=== PATIENT | female | born 1980 | race Caucasian/White ===

== ENCOUNTER → 2022-01-12 12:11 | Outpatient (CLI) | payer OTHER, SELFPAY ==
--- NOTE | ~2022-01-12 | XR_ITS ---
XR foot LT min 3V DATE: 01/12/2022 12:21 INDICATION: Dorsal left foot pain TECHNIQUE: 4 views COMPARISON: 05/10/2010 left foot FINDINGS: Mild plantar calcaneal enthesopathy. No fracture or dislocation, periosteal reaction or bon e destruction of the left foot. No erosive change. Mild hallux valgus IMPRESSION: Mild hallux valgus Mild plantar calcaneal enthesopathy Reviewed, dictated and finalized at location B. S COUNSELOR
== END ==
PROVIDERS: PCP Emergency Medicine; Visit Provider Emergency Medicine
DX: M79.672 Pain in left foot (principal); M20.12 Hallux valgus (acquired), left foot; M77.32 Calcaneal spur, left foot
CPT/HCPCS: 73630

== ENCOUNTER 2022-03-29 08:01 | Emergency (ER) | payer OTHER, SELFPAY ==
[2022-03-29 08:14] VITALS: BP 144/98; PULSE 94; RESP 16; TEMP 35.9; O2SAT 99
--- NOTE | 2022-03-29 08:21 | ED.URI ---
HPI - URI/Sore Throat General Chief Complaint: Upper Respiratory Infection Stated Complaint: sinus pain,headache Time Seen by Provider: 03/29/22 08:22 Source: patient and RN notes reviewed Mode of arrival: ambulatory Limitations: no limitations History of Present Illness HPI Narrative: 41-year-old female presented for complaint of facial pressure, sinus headache, nasal drainage causing nausea for 2 days. She also endorses bilateral ear pressure is present for 7 days. She has taken [id number]-[id number] cough and cold medication without relief, and has been using a Neti pot without drainage. 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 Denies sob, wheezing, v/d/f/c. MD elicited complaint: cough Related Data Home Medications Medication Instructions Recorded Confirmed drospirenone 3 mg-ethinyl 1 tablet PO DAILY 03/29/22 03/29/22 estradiol 0.03 mg tablet (Meredith) escitalopram oxalate 10 mg tablet 10 mg PO DAILY 03/29/22 03/29/22 Allergies Allergy/AdvReac Type Severity Reaction Status Date / Time codeine Allergy Hives Verified 03/29/22 08:22 Review of Systems Review of Systems: per HPI [facility] Family History Family History Other Family history of migraine headaches Social History Social History Smoking status: Never smoker Alcohol intake: current Substance use: unknown Lack of Transportation: No Lack of Food: Never True Current Housing: I Have Housing Concerned About Future Housing: No Difficulty Paying Gas/Electric Bills: No Difficulty Paying for Meds: No Currently Unemployed: No Education: Bachelor's Degree Difficulty w/ Childcare or Family Care: No Exam Narrative: GENERAL: well-appearing, nontoxic EYES: PERRLA, conjunctivae clear ENT: Mucous membranes moist. TMs pearly arreola with dull light reflex bilaterally; no tragal tenderness. Oropharynx normal, no drooling, no hoarseness, no trismus, uvula midline. NECK: Supple. No lymphadenopathy CHEST: Clear to auscultation, breath sounds equal. HEART: Regular rate and rhythm. No murmur heard. SKIN: Warm, dry, no rash. NEURO: Alert and oriented x3. PSYCH: Normal mood and affect Course Course Emergency Course: Patient is aware of diagnosis, understands and agrees to treatment plan. Anticipatory guidance given. Patient agrees to follow-up as directed and is aware of reasons to seek care at the emergency department. Portions of this record may have been created with voice recognition software Level of Care: Express Care Visit Vital Signs Vital signs: Vital Signs Temperature 96.7 F L 03/29/22 08:14 Pulse Rate 94 03/29/22 08:14 Respiratory Rate 16 03/29/22 08:14 Blood Pressure 144/98 H 03/29/22 08:14 Pulse Oximetry 99 03/29/22 08:14 Oxygen Delivery Room Air 03/29/22 08:14 Temperature 96.7 F L 03/29/22 08:14 Pulse Rate 94 03/29/22 08:14 Respiratory Rate 16 03/29/22 08:14 Blood Pressure 144/98 H 03/29/22 08:14 Pulse Oximetry 99 03/29/22 08:14 Oxygen Delivery Room Air 03/29/22 08:14 reviewed MDM - URI/Sore Throat MDM Narrative Medical decision making narrative: Advised supportive measures and signs/symptoms to go to the ER. Pt is appropriate for outpt treatment and f/u. Differential Diagnosis Differential diagnosis: Likely upper respiratory infection, sinusitis and viral infection Discharge Plan Discharge Clinical Impression: Upper respiratory infection Patient Disposition: Home, Self-Care Condition: Stable Instructions: Antibiotic Form, Rhinosinusitis (ED) Additional Instructions: Recommend Flonase spray and Zyrtec (or Claritin/Leandra) over the counter Cough syrup may cause drowsiness; avoid driving or take it at night time. Tylenol 1000mg every 8 hours as needed for pain Symptomatic treatment includes: rest, fluids, and increase humidity of the
== END 2022-03-29 08:35 | disposition home or self-care (01) ==
PROVIDERS: Emergency Provider Nurse Practitioner Family
DX: J06.9 Acute upper respiratory infection, unspecified (principal)
CPT/HCPCS: 99213; G0463

== ENCOUNTER → 2023-01-25 11:21 | Outpatient (CLI) | payer OTHER, SELFPAY ==
--- NOTE | ~2023-01-25 | MM_ITS ---
EXAMINATION: MM screening jaren BI w rosetta HISTORY: Screening mammogram. Baseline examination. TECHNIQUE: Craniocaudal and mediolateral oblique 3-D tomosynthesis images were obtained and synthetic 2-D images were generated. CAD analysis was submitted and interpreted. COMPARISON: No prior mammogram is available for comparison at this institution. BREAST PARENCHYMAL COMPOSITION: There are scattered areas of fibroglandular density. FINDINGS: Occasional bilateral benign calcifications. There is no evidence of suspicious mass, calcif ication, or architectural distortion to suggest malignancy in either breast. There has been no suspic ious interval change. IMPRESSION: 1. No mammographic evidence of malignancy. 2. Recommend routine screening mammography in one year. BI-RADS Category 1: Negative Reviewed, dictated and finalized at location A. [employer]
== END ==
PROVIDERS: PCP Nurse Practitioner; Visit Provider Nurse Practitioner
DX: Z12.31 Encounter for screening mammogram for malignant neoplasm of breast (principal)
CPT/HCPCS: 77063; 77067

== ENCOUNTER → 2023-01-30 14:59 | Outpatient (CLI) | payer OTHER, SELFPAY ==
--- NOTE | ~2023-01-30 | XR_ITS ---
XR shoulder RT min 2V 01/30/2023 15:19 INDICATION: Right shoulder pain PROCEDURE: 4 views right shoulder COMPARISON: No prior studies for comparison. FINDINGS: Fracture, dislocation or subluxation is not identified. The soft tissues appear within norm al limits. No foreign bodies are identified. IMPRESSION: 1: NO ACUTE BONE OR JOINT ABNORMALITY IDENTIFIED. Reviewed, dictated and finalized at location B. OR [employer]
--- NOTE | ~2023-01-30 | XR_ITS ---
[id number] 01/30/2023 15:19 Indication: Radiculopathy Procedure: 3 view cervical spine Comparison: No prior studies for comparison. Findings: Straightening of cervical lordosis. There is subtle anterolisthesis at C4-5. No prevertebra l soft tissue abnormality. Lung apices are normal. Odontoid process is normal. No fracture is identif ied. Impression: 1: Subtle anterolisthesis at C4-5 mild likely degenerative. No fracture identified. Reviewed, dictated and finalized at location B. EMIC SUPPORT DIRECTOR Impression: 1: Subtle anterolisthesis at C4-5 mild likely degenerative. No fracture identif ied.
== END ==
PROVIDERS: PCP Emergency Medicine; Visit Provider Emergency Medicine
DX: M54.12 Radiculopathy, cervical region (principal); M79.601 Pain in right arm
CPT/HCPCS: 72040; 73030

== ENCOUNTER 2023-02-07 14:56 | Emergency (ER) | payer OTHER, SELFPAY ==
[2023-02-07 15:16] VITALS: BP 130/64; PULSE 112; RESP 18; TEMP 36.3; O2SAT 95
--- NOTE | 2023-02-07 15:22 | ED.GENADULT ---
HPI - General Adult General Chief complaint: Upper Respiratory Infection Stated complaint: sorethroat Time Seen by Provider: 02/07/23 15:22 Source: patient, RN notes reviewed and old records reviewed Mode of arrival: ambulatory Limitations: no limitations History of Present Illness HPI narrative: 42-year-old female presents to [facility] with complaint sore throat, myalgia, fatigue, Headache,sinus congestion that started yesterday. Patient taking kohp-kfs-zyllowl medications with no relief. Patient denies cough, chest pain, wheezing, weakness, dizziness, vomiting. MD complaint: sore throat Onset (ago): day(s) (1) Related Data Home Medications Medication Instructions Recorded Confirmed drospirenone 3 mg-ethinyl 1 tablet PO DAILY 03/29/22 02/07/23 estradiol 0.03 mg tablet (Meredith) escitalopram oxalate 10 mg tablet 10 mg PO DAILY 03/29/22 02/07/23 Allergies Allergy/AdvReac Type Severity Reaction Status Date / Time codeine Allergy Hives Verified 01/30/23 14:13 Review of Systems Constitutional: Constitutional: Reports as per HPI, Reports body ache(s), Denies chills, Reports fatigue, Denies fever(s) and Reports headache(s) Eyes: Eyes: Reports no additional eye complaints and Denies blurry vision ENT: Denies vertigo, Denies dizziness, Denies ear discharge, Denies otalgia, Denies facial pain, Denies headache(s), Denies nasal congestion, Denies nasal discharge, Denies sinus pain, Denies sinus pressure and Reports sore throat Cardiovascular: Cardiovascular: Denies chest pain, Denies chest pain at rest, Denies rapid heart rate and Denies dyspnea Respiratory: Respiratory: Denies chest congestion, Denies cough, Denies pain on inspiration, Denies pain with cough and Denies dyspnea Gastrointestinal: Gastrointestinal: Denies abdominal pain, Denies diarrhea, Denies nausea and Denies vomiting Integumentary/Breasts: Skin/Breast: Denies rash Neurologic: Reports system reviewed and no additional complaints, except as documented, Denies vertigo, Denies dizziness and Denies headache(s) Endocrine: Endocrine: Denies fatigue PMF Family History Family History Other Family history of migraine headaches Social History Social History Social History: Soda- occasionally Smoking status: Never smoker Alcohol intake: never Substance use: never Substance use type: does not use Lack of Transportation: No Lack of Food: Never True Current Housing: I Have Housing Concerned About Future Housing: No Difficulty Paying Gas/Electric Bills: No Difficulty Paying for Meds: No Currently Unemployed: No Education: Bachelor's Degree Difficulty w/ Childcare or Family Care: No Comments At the time of my signature, I reviewed and agree with the nursing past medical, surgical, social, and family history. There is no relevant family history pertinent to the patient complaint. Exam Const: General: cooperative, healthy appearing, no acute distress and well nourished Nutritional Appearance: well nourished Orientation/consciousness: patient oriented x3 Limitations: no limitations HENMT: Head: normal to inspection and normocephalic Ears: external ears normal, TM's normal bilaterally, mastoids normal and Abnormal EAC present Face/Nose/Sinus: normal facial exam Face and sinus: normal facial exam Mouth: Yes Normal oral and palatal mucosa present, Yes oropharynx normal and Yes moist mucous membranes Throat: tonsils normal, uvula midline, posterior oropharynx abnormal erythema and no uvular edema Eyes: General: appearance normal, both eyes and all related structures Sclera: sclerae normal Pupils: Equal, round and reactive pupils present Resp: Effort & Inspection: normal respiratory effort, able to speak in complete sentences, no audible wheezes, no cough, no respiratory distress and no retractions Auscultation:
== END 2023-02-07 15:48 | disposition home or self-care (01) ==
PROVIDERS: Emergency Provider Registered Nurse; PCP Emergency Medicine
DX: J02.0 Streptococcal pharyngitis (principal); Z79.899 Other long term (current) drug therapy; Z20.822 Contact with and (suspected) exposure to COVID-19
CPT/HCPCS: 87426; 87804; 87880; 99213; C9803; G0463

== ENCOUNTER 2023-05-09 08:04 | Outpatient (CLI) | payer OTHER, SELFPAY ==
--- NOTE | ~2023-05-09 | CT_ITS ---
EXAMINATION: CT sinus wo con DATE: 05/09/2023 08:30 INDICATION: Nasal valve collapse. Headache. Facial pain and pressure. Congestion and drainage. TECHNIQUE: Computed tomography (CT) of the paranasal sinuses was performed without intravenous contra st. Iterative reconstruction technique was employed. The dose-length product was 279.12 mGy-cm. COMPARISON: CT sinuses 01/01/2019 FINDINGS: There is mild mucosal thickening in the frontal sinuses and right ethmoid sinuses. The sphe noid sinuses are clear. There is mild mucosal thickening in the maxillary sinuses. There is rightward deviation of anterior nasal septum. There is leftward deviation of superior posterior nasal septum. There is a Fang cell on the left. The ostiomeatal units are patent. IMPRESSION: 1. Mild mucosal thickening in the paranasal sinuses. 2. Rightward deviation of the anterior nasal septum and leftward deviation of the superior posterior nasal septum. Reviewed, dictated and finalized at location A. IMPRESSION: 1. Mild mucosal thickening in the paranasal sinuses. 2. Rightward deviation of the anterior nasal septum and leftward deviation of t he superior posterior nasal septum.
== END 2023-05-09 08:05 ==
PROVIDERS: PCP Otolaryngology; Visit Provider Otolaryngology
DX: J34.89 Other specified disorders of nose and nasal sinuses (principal); J34.2 Deviated nasal septum
CPT/HCPCS: 70486

== ENCOUNTER 2023-09-22 14:17 | Emergency (ER) | payer OTHER, SELFPAY ==
[2023-09-22 14:30] VITALS: BP 110/65; PULSE 107; RESP 20; TEMP 36.3; O2SAT 98
--- NOTE | 2023-09-22 14:31 | ED.URI ---
HPI - URI/Sore Throat General Chief Complaint: Upper Respiratory Infection Stated Complaint: flu like symptoms Time Seen by Provider: 09/22/23 14:31 Source: patient Mode of arrival: ambulatory Limitations: no limitations History of Present Illness HPI Narrative: 43 yo F presents with c/o fatigue, chills, sweats, bodyaches, headache for 5 days. Had fever for 2 days, has resolved. Taking OTC pain meds. Reports cough intermittent. Denies sore throat, congestion. Daughter had strep approx. 2 wks. ago. +nausea. Denies vomiting. All systems reviewed and negative except as noted above. Related Data Home Medications Medication Instructions Recorded Confirmed drospirenone 3 mg-ethinyl 1 tablet PO DAILY 03/29/22 09/22/23 estradiol 0.03 mg tablet (Meredith) escitalopram oxalate 10 mg tablet 10 mg PO DAILY 03/29/22 09/22/23 omeprazole 40 mg capsule,delayed 40 mg PO DAILY 09/22/23 09/22/23 release Allergies Allergy/AdvReac Type Severity Reaction Status Date / Time codeine AdvReac Mild Hives Verified 09/22/23 14:19 Review of Systems Review of Systems: CONSTITUTIONAL: reports fever, chills, or sweats. EYES: Denies visual changes, redness, or discharge. ENT: Reports rhinorrhea, congestion. Denies sore throat, or otalgia. CARDIOVASCULAR: Denies chest pain, palpitations, or edema. RESPIRATORY: Denies cough or dyspnea. GASTROINTESTINAL: Denies abdominal pain, nausea, vomiting, or diarrhea. GENITOURINARY: Denies dysuria or hematuria. SKIN: Denies rash or itching. MUSCULOSKELETAL: Denies back pain, joint pain. Reports myalgia. NEUROLOGIC: reports headache. Denies numbness, or weakness. PSYCHIATRIC: Denies anxiety or depression. All other systems reviewed are negative, except as documented in HPI. [facility] Family History Family History Other Family history of migraine headaches Social History Social History Social History: Soda- occasionally Smoking status: Never smoker Alcohol intake: never Substance use: never Substance use type: does not use Lack of Transportation: No Lack of Food: Never True Current Housing: I Have Housing Concerned About Future Housing: No Difficulty Paying Gas/Electric Bills: No Difficulty Paying for Meds: No Currently Unemployed: No Education: Bachelor's Degree Difficulty w/ Childcare or Family Care: No Comments At time of signature, agree with nursing past medical, surgical, social and family history. There is no relevant family history pertinent to the presenting complaint. Exam Narrative: GENERAL: This is a well-nourished, well-developed patient, patient ill-appearing but in no distress HEAD: normocephalic, atraumatic. EYES: PERRL. Sclera clear/white. Vision is grossly intact. EARS: External ears normal, auditory canals clear and without drainage, TMs normal without perforation. Hearing grossly intact. NOSE: External nose normal with clear nasal drainage THROAT: Mucous membranes moist, posterior pharynx clear. NECK: Neck supple, non-tender without lymphadenopathy, masses or thyromegaly. CARDIOVASCULAR: Regular rate and rhythm without murmurs, gallops, or rubs. RESPIRATORY: Clear to auscultation. Breath sounds equal bilaterally. No wheezes, rales, or rhonchi. SKIN: warm, Dry, intact with no suspicious lesions or rash, good texture and turgor. NEURO: awake, alert, and oriented to person, place and time. There were no obvious focal neurologic abnormalities. EXTREMITIES: No joint tenderness, effusion, or edema noted. Course Course Level of Care: Express Care Visit Vital Signs Vital signs: Vital Signs Temperature 36.3 C L 09/22/23 14:30 Pulse Rate 107 H 09/22/23 14:30 Respiratory Rate 20 09/22/23 14:30 Blood Pressure 110/65 09/22/23 14:30 Pulse Oximetry 98 09/22/23 14:30 Oxygen Delivery Room Air 09/22/23 14:30
[2023-09-22 14:40] LABS: EDINFLUASCREEN Negative; EDINFLUBSCREEN Negative
[2023-09-22 14:56] LABS: EDSTREPNEGPOS1 Presumptive Negative
== END 2023-09-22 15:02 | disposition home or self-care (01) ==
PROVIDERS: Emergency Provider Nurse Practitioner Family
DX: B34.9 Viral infection, unspecified (principal); Z20.822 Contact with and (suspected) exposure to COVID-19
CPT/HCPCS: 87081; 87426; 87804; 87880; 99213; G0463

== ENCOUNTER 2023-09-24 11:22 | Emergency (ER) | payer OTHER, SELFPAY ==
[2023-09-24] VITALS (9 sets, daily range): BP systolic 110–122; BP diastolic 67–76; PULSE 96–116; RESP 16–27; TEMP 36.8–37.1; O2SAT 97–100
--- NOTE | ~2023-09-24 | XR_ITS ---
Clinical Indication: Sepsis, weakness PA and lateral views of the chest: Comparison: None Findings: There is extensive hazy airspace disease in the right lower lobe. Left lung clear.. Cardio mediastinal silhouette is within normal limits. Bones and soft tissues are unremarkable. Impression: Hazy right lower lobe airspace disease, likely pneumonia. Consider follow-up exam after interval ther apy versus CT to further evaluate. Reviewed, dictated and finalized at location M. Impression: Hazy right lower lobe airspace disease, likely pneumonia. Consider follow-up ex am after interval therapy versus CT to further evaluate.
[2023-09-24 11:55] LABS: Basophils Absolute Auto 0.1 K/mm3 (0.0-0.1); Basophils Percent Auto 0.7 % (0.2-1.2); Eosinophils Absolute Auto 0.1 K/mm3 (0-0.3); Eosinophils Percent Auto 0.7 % (0-4.4); Hematocrit 41.9 % (37.0-47.0); Hemoglobin 14.4 g/dL (12.0-15.0); Immature Granulocyte Absolute 0.05 K/mm3 (0.00-0.031); Immature Granulocyte Percent A 0.7 % (0-0.5); Lymphocytes Percent Auto 18.8 % (18.3-44.2); Mean Corpuscular HGB Conc 34.4 g/dl (32-36); Mean Corpuscular Hemoglobin 31.6 pg (26-34); Mean Corpuscular Volume 92.1 fl (80-100); Mean Platelet Volume 9.8 fl (7.4-10.4); Monocytes Absolute Auto 0.6 K/mm3 (0.1-0.6); Monocytes Percent Auto 7.7 % (2.6-8.5); Neutrophils Absolute Auto 5.3 K/mm3 (1.3-6.7); Neutrophils Percent Auto 71.4 % (45.5-73.1); Platelet Count Result 244 k/mm3 (150-375); Red Blood Count 4.55 M/mm3 (4.2-5.4); Red Cell Distribution Width 12.7 % (11.5-14.5); White Blood Count 7.5 K/mm3 (4.5-10.0)
[2023-09-24 12:03] LABS: BEDSIDEPREGUCG Negative
[2023-09-24 12:07] LABS: Alanine Aminotransferase 59 U/L (6-35); Alkaline Phosphatase 142 U/L (38-126); Anion Gap 11 mmol/L (4-12); Aspartate Amino Transferase 54 U/L (14-36); Bilirubin,Total 0.8 mg/dL (0.2-1.3); Blood Urea Nitrogen 12 mg/dL (7-17); Calcium 8.9 mg/dL (8.4-10.2); Carbon Dioxide 26 mmol/L (22-30); Chloride 94 mmol/L (98-107); Estimated CRCL calculation 91 ml/min; Estimated Glomerular Filt Rate > 60; Glucose 119 mg/dL (65-110); Potassium 4.4 mmol/L (3.4-5.0); Sodium 131 mmol/L (137-145)
[2023-09-24 12:22] LABS: Appearance Urine Cloudy (Clear); Bacteria Urine 1+ /hpf; Bilirubin Urine 1+ (Negative); Blood Urine 2+ (Negative); Color Urine Dark Yellow (Yellow); Glucose Urine UA Negative (Negative); Ketones Urine Trace mg/dL (Negative); Leukocyte Esterase Ur Trace LEU/UL (Negative); Need Manual Microscopic Reviewed; Nitrate Urine Negative (Negative); Protein Urine 3+ mg/dL (Negative); Specific Grav Ur 1.027 (1.001-1.035); Squamous Epithelial Cell Urine Many /hpf (Few); WBC Urine 0-5 /hpf (0-3)
[2023-09-24 12:24] LABS: Add Urine Microscopic? YES
[2023-09-24] MEDS: SODIUM CHLORIDE 0.9% IV 1,000 ML 999 ML IV CONT ×2 (12:31→13:03)
[2023-09-24 12:32] LABS: Monoscreen Negative (Negative); Negative Monotest Control Negative (Negative); Positive Monotest Control Positive (Positive)
[2023-09-24 13:07] LABS: Influenza A QL RT-PCR Negative (Negative); Influenza B QL RT-PCR Negative (Negative); RSV RNA, RT-PCR Negative (Negative); SARS-CoV-2 RNA PCR Negative (Negative)
--- NOTE | 2023-09-24 14:12 | ED.RECABL ---
HPI - Recheck/Abnormal Lab/Rx General Chief Complaint: Recheck/Abnormal Lab/Rx Stated Complaint: dehydration Time Seen by Provider: 09/24/23 11:36 Source: patient Mode of arrival: ambulatory Limitations: no limitations History of Present Illness HPI narrative: Patient is a 43-year-old female who presents the ED with multiple complaints. Patient reports she has not felt well over the last 1 week. Reports fatigue, diffuse myalgias, cough, chills, intermittent fevers, overall malaise. She has been to her primary care doctor and urgent care several times and referred here for further evaluation and hydration. Patient denies chest pain, shortness of breath, abdominal pain, nausea, vomiting, dysuria, hematuria. Denies known sick contacts. Related Data Home Medications Medication Instructions Recorded Confirmed drospirenone 3 mg-ethinyl 1 tablet PO DAILY 03/29/22 09/22/23 estradiol 0.03 mg tablet (Meredith) escitalopram oxalate 10 mg tablet 10 mg PO DAILY 03/29/22 09/22/23 omeprazole 40 mg capsule,delayed 40 mg PO DAILY 09/22/23 09/22/23 release Allergies Allergy/AdvReac Type Severity Reaction Status Date / Time codeine AdvReac Mild Hives Verified 09/24/23 11:23 Review of Systems Review of Systems: CONSTITUTIONAL: See HPI ENT: Denies rhinorrhea, congestion, sore throat. CARDIOVASCULAR: Denies chest pain, palpitations, or edema. RESPIRATORY: See HPI GASTROINTESTINAL: Denies abdominal pain, nausea, vomiting MUSCULOSKELETAL: See HPI All systems reviewed & are unremarkable except as noted in HPI and below PMFSH Family History Family History Other Family history of migraine headaches Social History Social History Social History: Soda- occasionally Smoking status: Never smoker Alcohol intake: never Substance use: never Substance use type: does not use Lack of Transportation: No Lack of Food: Never True Current Housing: I Have Housing Concerned About Future Housing: No Difficulty Paying Gas/Electric Bills: No Difficulty Paying for Meds: No Currently Unemployed: No Education: Bachelor's Degree Difficulty w/ Childcare or Family Care: No Exam Narrative: GENERAL: Mildly ill appearing, obese with BMI of 35.0, non-toxic, in no acute distress. HEAD: Normocephalic, atraumatic. RESPIRATORY: Airway patent, respirations nonlabored. Rhonchi throughout right lower lung zone, no wheezing or distress. CARDIOVASCULAR: Tachycardic with regular rhythm without murmurs, rubs, or gallops. ABDOMINAL: Soft, no tenderness throughout abdomen, nondistended. Normoactive BS. MUSCULOSKELETAL: Moves all extremities. No gross deformities. SKIN: Warm, dry, normal color. NEURO: A&O X3. Speech clear. Cranial nerves II-XII grossly intact. Steady gait. No ataxic movements. PSYCHIATRIC: Appropriate mood and affect. Normal interaction. Course Vital Signs Vital signs: Vital Signs Temperature 98.3 F 09/24/23 11:24 Pulse Rate 116 H 09/24/23 11:24 Respiratory Rate 16 09/24/23 11:24 Blood Pressure 122/67 09/24/23 11:24 Pulse Oximetry 100 09/24/23 11:24 Temperature 98.7 F 09/24/23 15:15 Pulse Rate 96 09/24/23 15:15 Respiratory Rate 21 H 09/24/23 15:15 Blood Pressure 113/74 09/24/23 15:15 Pulse Oximetry 100 09/24/23 15:15 MDM - Recheck/Abnormal Lab/Rx MDM Narrative Medical decision making narrative: Patient presented to ED with multiple viral type symptoms x1 week. Vital signs are stable upon arrival though patient mildly tachycardic. Appears generally unwell, though exam fairly unremarkable. Some rhonchi heard throughout right lower lung zone. Patient does report recent cough and fevers. [place] screen, influenza, RSV, COVID negative. CBC without leukocytosis or anemia. CMP with sodium 131, chloride 94. Fluids ongoing. Minimal elevation of gabe
== END 2023-09-24 15:20 | disposition home or self-care (01) ==
PROVIDERS: Emergency Medicine; Emergency Provider Physician Assistant; PCP Emergency Medicine
DX: J18.9 Pneumonia, unspecified organism (principal); B34.9 Viral infection, unspecified; Z20.822 Contact with and (suspected) exposure to COVID-19
CPT/HCPCS: 36415; 71046; 80053; 81001; 81025; 85025; 86308; 87637; 96360; 96361; 99283; J7030

== ENCOUNTER 2024-03-31 13:37 | Outpatient (CLI) | payer OTHER, SELFPAY ==
--- NOTE | ~2024-03-31 | MM_ITS ---
EXAMINATION: MM screening jaren BI w rosetta HISTORY: Screening TECHNIQUE: Craniocaudal and mediolateral oblique 3-D tomosynthesis images were obtained and synthetic 2-D images were generated. CAD analysis was submitted and interpreted. COMPARISON: 01/25/2023 BREAST PARENCHYMAL COMPOSITION: Not dense: There are scattered areas of fibroglandular density. FINDINGS: There is a new small mass which is obscured in the upper outer quadrant of the right breast , anterior third. There are new clustered calcifications in the upper outer quadrant of the left keyshawn st near the skin surface. IMPRESSION: 1. New small right breast mass. New clustered left breast calcifications. 2. Additional mammographic views and possible breast ultrasound are recommended. BI-RADS Category 0: Incomplete: Needs additional imaging evaluation. Reviewed, dictated and finalized at location B. NET ARCHITECT IMPRESSION: 1. New small right breast mass. New clustered left breast calcifications. 2. Additional mammographic views and possible breast ultrasound are recommended . BI-RADS Category 0: Incomplete: Needs additional imaging evaluation.
== END 2024-03-31 13:38 | disposition home or self-care (01) ==
LOC: MICIMG 13:38
PROVIDERS: PCP Nurse Practitioner; Visit Provider Nurse Practitioner
DX: Z12.31 Encounter for screening mammogram for malignant neoplasm of breast (principal); R92.8 Other abnormal and inconclusive findings on diagnostic imaging of breast
CPT/HCPCS: 77063; 77067

== ENCOUNTER 2024-04-30 08:18 | Outpatient (CLI) | payer OTHER, SELFPAY ==
--- NOTE | ~2024-04-30 | MMUS_ITS ---
EXAMINATION: MM diagnostic jaren BI w rosetta, US breast RT limited HISTORY: Right breast mass, left breast calcifications TECHNIQUE: Additional 3-D tomosynthesis images of the right breast, and spot magnification views of t he left breast, were performed and synthetic 2-D images were generated. CAD analysis was submitted an d interpreted. High resolution limited right breast ultrasound was performed. COMPARISON: 03/31/2024, 01/25/2023 BREAST PARENCHYMAL COMPOSITION:Not Dense. There are scattered areas of fibroglandular density. FINDINGS: MAMMOGRAPHIC FINDINGS: Spot compression views confirm 4 mm circumscribed low-density mass at the upper, outer right breast. Spot magnification views demonstrate coarse, benign-appearing calcifications in the left subareolar r egion. ULTRASOUND: At the 12:00 position right breast, 4 cm from the nipple, there is a 5 mm anechoic circumscribed cyst with posterior through transmission. IMPRESSION: No evidence for malignancy. 5 mm right breast cyst, as detailed above. BI-RADS Category 2: Benign finding(s). Reviewed, dictated and finalized at location . [employer] IMPRESSION: No evidence for malignancy. 5 mm right breast cyst, as detailed above. BI-RADS Category 2: Benign finding(s).
== END 2024-04-30 08:19 | disposition home or self-care (01) ==
LOC: MICIMG 08:19
PROVIDERS: PCP Obstetrics & Gynecology Gynecology; Visit Provider Obstetrics & Gynecology Gynecology
DX: R92.8 Other abnormal and inconclusive findings on diagnostic imaging of breast (principal)
CPT/HCPCS: 76642; 77062; 77066; G0279

== ENCOUNTER 2024-06-25 14:31 | Emergency (ER) | payer OTHER, SELFPAY ==
--- NOTE | 2024-06-25 14:36 | ED_ITS ---
HPI - URI/Sore Throat General Chief Complaint: Upper Respiratory Infection Stated Complaint: cold like History of Present Illness HPI Narrative: This is a 43-year-old female patient with a history of chronic sinusitis and deviated septum who presents to [facility] with complaints of worsening symptoms associated with sinus pressure, rhinorrhea, sore throat, cough and pain in her right-sided midback. Patient reports that the last time she had similar illness she developed right lower lobe pneumonia and was ultimately on 3 different antibiotics before she improved. Patient states that she is in the process of switching primary care providers so she used telehealth and was presc ribed amoxicillin 2 days ago. She states that after she started taking this her symptoms worsened including significant fatigue, worsening cough and some difficulty breathing with activity. She states that the right mid portion of her back began to hurt and this is the location where she had pneumonia last time. In total symptoms have been ongoing for more than a week though she cannot remember the exact day that they started. Related Data Home Medications ?Medication ?Instructions ?Recorded ?Confirmed ?Last Taken ?Type drospirenone 3 mg-ethinyl 1 tablet PO DAILY 03/29/22 09/22/23 Unknown History estradiol 0.03 mg tablet (Meredith) escitalopram oxalate 10 mg tablet 10 mg PO DAILY 03/29/22 09/22/23 Unknown History omeprazole 40 mg capsule,delayed 40 mg PO DAILY 09/22/23 09/22/23 Unknown History release Allergies Allergy/AdvReac Type Severity Reaction Status Date / Time codeine Allergy Mild Hives Verified 06/25/24 14:37 Review of Systems Review of Systems: All systems reviewed & are unremarkable except as noted in HPI and below [facility] Family History Family History Other Family history of migraine headaches Social History Social History Social History: Soda- occasionally Smoking status: Never smoker Alcohol intake: never Substance use: never Substance use type: does not use Lack of Transportation: No Lack of Food: Never True Current Housing: I Have Housing Concerned About Future Housing: No Difficulty Paying Gas/Electric Bills: No Difficulty Paying for Meds: No Currently Unemployed: No Education: Bachelor's Degree Difficulty w/ Childcare or Family Care: No Exam Narrative: GENERAL: Well-appearing, well-nourished, and in no acute distress. HEAD: Normocephalic, atraumatic. ENT:? Mucous membranes moist. CHEST: Clear to auscultation, mildly diminished on exhalation.? No respiratory distress. Frequent dry hacking cough noted. HEART: Regular rate and rhythm. ? Normal peripheral pulses. SKIN: Warm dry normal color NEURO: Alert and oriented x3. PSYCH: Normal mood and affect Course Course Level of Care: Express Care Visit Vital Signs Vital signs: Vital Signs Temperature 36.4 C 06/25/24 14:37 Pulse Rate 97 06/25/24 14:37 Respiratory Rate 18 06/25/24 14:37 Blood Pressure 137/79 06/25/24 14:37 Pulse Oximetry 100 06/25/24 14:37 Oxygen Delivery Room Air 06/25/24 14:37 Temperature 36.4 C 06/25/24 14:37 Pulse Rate 97 06/25/24 14:37 Respiratory Rate 18 06/25/24 14:37 Blood Pressure 137/79 06/25/24 14:37 Pulse Oximetry 100 06/25/24 14:37 Oxygen Delivery Room Air 06/25/24 14:37 MDM - URI/Sore Throat MDM Narrative Medical decision making narrative: 43-year-old female patient with history of chronic sinusitis and nasal septum deviation who underwent partial widening the nasal passages at the ENT office last year who presents with evolving symptoms that likely started as a viral URI and have progressed to bacterial infection. She stated that she had some nasal congestion sinus pain and pressure and she has been using Flonase. She started amoxicillin 875 mg twice daily and has had 5 doses so far and reports that her symptoms are continuing to worsen. Patient reports that she is having increased cough and occasional sore throat. She is also having pain in the location where she had pneumonia the last time she felt like this. Patient reports that she has been more fatigued and short of breath. Lung sounds clear on auscultation diminished on exhalation. She was having frequent hacking cough was dry and nonproductive in the office. Patient reports that the last time she had symptoms like this she went through a round of amoxicillin then azithromycin and finally Levaquin before receiving any improvement or relief. Patient does take escitalopram daily. Old EKG from 2019 showed a QTC of 425. Decided to repeat EKG today for QTC monitoring before switching antibiotics over to Levaquin. Patient reports she was also on Tessalon Perles but that has not helped her cough. We discharged with prescription for prednisone, Levaquin and instructions on Mucinex DM for cough as well as continued use of Flonase if needed. Discussed going to the emergency department if symptoms worsen. We deferred XR as we were planning to treat the same regardless of results based on patient presentation and history. Medical Records Attestation: I reviewed the patient's medical records. Medical records narrative: Reviewed prior ENT notes and ER/Express care notes regarding prior illness. Patient reports feeling exactly the same as she did when all of these visits were necessary before. ECG Data EKG #1: Attestation: I personally reviewed and interpreted this ECG as follows: ECG completion date: 06/25/24 ECG completion time: 15:28 Prior ECG tracings: available for review Interpretation: My independent interpretation of 12 lead EKG obtained on 06/25/2024 at 3:28 p.m. shows sinus rhythm rate of 88 TN interval 141 QRS duration 101 QTC 404 QRS axis 52 no STEMI or acute ischemic changes. EKG Interpretation: normal rate, sinus rhythm, no ectopy, no ST changes, normal QRS, normal QT, NL axis and no acute changes Discharge Plan Discharge Clinical Impression: Bronchitis Patient Disposition: Home Condition: Stable Instructions: Antibiotic Form, Acute Bronchitis (ED) Additional Instructions: Mucinex DM Max (buy the store brand) take as package instructs. Albuterol inhaler 2-4 puffs every 4-6 hours as needed for cough/wheezing/shortness of breath Prednisone 60 mg daily for 7 days Antibiotics can interfere with oral control medications so take additional precautions while on antibiotics and for a week or two after completing prescription. Patient Language: Greenlandic Prescriptions: New albuterol sulfate [Ventolin HFA] 90 mcg/actuation HFA aerosol inhaler 2 - 4 puff inhalation Q4-6H PRN (Reason: shortness of breath or wheezing) Qty: 6.7 1RF prednisone 20 mg tablet 60 mg PO DAILY 7 Days Qty: 21 0RF levofloxacin 750 mg tablet 750 mg PO DAILY 7 Days Qty: 7 0RF Discontinued amoxicillin 875 mg tablet No Action drospirenone-ethinyl estradiol [Meredith] 3-0.03 mg tablet 1 tablet PO DAILY escitalopram oxalate 10 mg tablet 10 mg PO DAILY omeprazole 40 mg capsule,delayed release(DR/EC) 40 mg PO DAILY eletriptan 40 mg tablet See Rx Instructions PO .COMPLEX Qty: 20 3RF Rx Instructions: take 1 tab at onset of headache; if no relief, may repeat 1 tab after at least 2 hrs; max = 2 tabs/24 hrs PO Follow-up/Referrals: PHYSICIAN,SCHOOL COMMISSIONER [Primary Care Provider] - Time of Disposition: 15:29
[2024-06-25 14:37] VITALS: BP 137/79; PULSE 97; RESP 18; TEMP 36.4; O2SAT 100
--- NOTE | 2024-06-25 14:58 | ECG_ITS ---
Test Date: 2024-06-25 15:28:42 Measurements Intervals [place] Rate: 88 P: 64 MA: 141 QRS: 52 QRSD: 101 T: 20 QT: 359 QTc: 435 Interpretive Statements SINUS RHYTHM No previous ECG available for comparison Electronically Signed On 06-26-2024 18:59:48 CDT by Desire Ordaz
--- OUTSIDE RECORDS SUMMARY | 2024-06-25 15:15 | XMS_ITS | Clinical Summary ---
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
--- OUTSIDE RECORDS SUMMARY | 2024-06-25 15:15 | XMS_ITS | Clinical Summary ---
Author Organization [facility] [employer] Address [address] [place] [address] Care Team Providers Care Principal Engineer Name Role Phone Donovan Guerra MD Primary Care Provider [phone] Source Comments [facility],non-owned Affiliates and Associated Physician Practices is amultiple site organization consisting of ambulatory clinics and hospital sitesin [place], [place], [place] and [place]. This disclosure is being madepursuant to the Care Everywhere program and may not contain all information available regarding this patient. 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 Gender Identity Not on file Sexual Orientation Not on file Plan of Treatment Health Maintenance Due Date Last Done Comments LIPID TESTING 1981 MAMMOGRAM 1981 HIV SCREENING 1996 HEPATITIS C SCREENING 07/24/1999 DTAP/TDAP/TD VACCINES (1 - Tdap) 2000 HEPATITIS B VACCINE (1 of 3 - 19+ 3-dose series) 2000 COVID-19 VACCINE ( - 2023-2 5 season) 2023 DEPRESSION SCREENING 02/26/2024 INFLUENZA VACCINE (Season Ended) 2024 ZOSTER VACCINE (1 of 2) 07/29/2031 HIB VACCINE Aged Out No longer eligi ble based on patient's age to complete this topic HPV VACCINE Aged Out No longer eligi ble based on patient's age to complete this topic MENINGOCOCCAL (Group B) VACC INE SHARED DECISION-MAKING Aged Out No longer eligibl e based on patient's age to complete this topic MENINGOCOCCAL GROUPS A/C/Y/W VACCINE Aged Out No longer eligible b ased on patient's age to complete this topic PNEUMOCOCCAL VACCINE Aged Out No long er eligible based on patient's age to complete this topic Care Teams Principal Engineer Relationship Specialty [place] [address] [place] [address] PCP - General 01/14/10
== END 2024-06-25 15:34 | disposition home or self-care (01) ==
PROVIDERS: Emergency Provider Nurse Practitioner
DX: J40 Bronchitis, not specified as acute or chronic (principal)
CPT/HCPCS: 93005; 99213; G0463

== ENCOUNTER 2024-07-28 12:31 | Outpatient (CLI) | payer OTHER, SELFPAY ==
--- NOTE | ~2024-07-28 | XR_ITS ---
Clinical Indication: Cough PA and lateral views of the chest: Comparison: 09/24/2023 Findings: The lungs are clear, without evidence of focal consolidation or pleural effusion. Cardiome diastinal silhouette is within normal limits. Bones and soft tissues are unremarkable. Impression: Normal chest. Reviewed, dictated and finalized at location . Impression: Normal chest.
== END 2024-07-28 12:32 | disposition home or self-care (01) ==
LOC: GOSHIMG 12:32
PROVIDERS: PCP Family Medicine; Visit Provider Family Medicine
DX: R05.3 Chronic cough (principal)
CPT/HCPCS: 71046